=== PATIENT | female | born 1955 | race Caucasian/White ===

== ENCOUNTER → 2016-12-30 | Outpatient (CLI) | payer BC ==
--- NOTE | 2016-12-30 16:29 | CT ---
EXAMINATION TYPE: CT brain wo con DATE OF EXAM: 12/30/2016 4:13 PM COMPARISON: NONE HISTORY: 61-year-old female with memory loss, worse over the past 6 months. TECHNIQUE: Examination was done in axial plane without intravenous contrast. Coronal and sagittal reconstructions performed. CT DLP: 1147.00 mGycm Automated exposure control for dose reduction was used. FINDINGS: There is no evidence of acute intracranial hemorrhage, acute ischemic changes, mass, mass-effect, or extra-axial fluid collection. There is no effacement of cerebral sulci or basal subarachnoid cister ns. There is no hydrocephalus. There is no midline shift. Mendoza-white matter distinction is preserv ed. Mild bifrontal cortical atrophy. Paranasal sinuses and mastoid air cells well pneumatized. Orbits and globes are intact. 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 IMPRESSION: No acute intracranial abnormality seen. Mild bifrontal cortical atrophy.
== END | disposition home or self-care (01) ==
LOC: RADCTMAIN 15:57
PROVIDERS: ATTEND Psychiatry & Neurology Neurology
DX: G31.9 Degenerative disease of nervous system, unspecified (principal); R51 Headache; R41.3 Other amnesia
CPT/HCPCS: 70450

== ENCOUNTER 2018-06-29 08:47 | Day surgery (SDC) | payer BC ==
[2018-06-26 15:37] VITALS: BMI 54.8
[~2018-06-29 08:47] MED LIST: LACTATED RINGERS 1,000 ML IV SCH; LIDOCAINE 1% 20 ML VIAL (10MG/ML) FOR IV START INTRADERMA PRN; MIDAZOLAM 2 MG/2 ML VIAL IV PRN
[2018-06-29 09:34] VITALS: RESP 18; TEMP 98.2
[2018-06-29] MEDS ORDERED: PROPOFOL 10 MG/ML 20 ML VIAL IV ONE (10:01)
--- NOTE | 2018-06-29 10:21 | P.PCN ---
Date of Procedure: 06/29/18 Procedure(s) Performed: BRIEF HISTORY: Patient is a 62-year-old pleasant white female, scheduled for an elective colonoscopy as a part of evaluation of chronic diarrhea for the last 6 months duration. She is having bowel movements anywhere from 4-5 a day which are loose to watery in consistency. He stopped taking meloxicam and the diarrhea has improved a week ago. She also has prior history of colon polyps. PROCEDURE PERFORMED: Colonoscopy with random biopsies. PREOPERATIVE DIAGNOSIS: Chronic diarrhea and history of colon polyps. IV sedation per Anesthesia. PROCEDURE: After informed consent was obtained, the patient, was brought into the endoscopy unit. IV sedation was administered by Anesthesia under continuous monitoring. Digital rectal examination was normal. Initially the Olympus CF- 160 flexible video colonoscope was then inserted in the rectum, gradually advanced into the cecum without any difficulty. Careful examination was performed as the scope was gradually being withdrawn. Ileocecal valve and the appendiceal orifice were visualized and appeared normal. Prep was fair. Thorough irrigation was performed using irrigation system.. Mucosa of the cecum , ascending colon, transverse colon, descending colon, sigmoid colon, and rectum appeared normal. Random biopsies were done from ascending and descending colon to rule out microscopic/collagenous colitis. Retroflexion was performed in the rectum and no lesions were seen. The patient tolerated the procedure well. IMPRESSION: Normal-appearing colon from rectum to cecum with no evidence of colitis or colorectal neoplasia. RECOMMENDATIONS: Findings of this examination were discussed with the patient is a family. She was advised to follow with the biopsy results.. She can have a repeat surveillance colonoscopy in 5 years from now because of the prior history of colon polyps
[2018-06-29 10:26] VITALS: PULSE 66
[2018-06-29 10:38] VITALS: BP 140/84
== END 2018-06-29 10:53 | disposition home or self-care (01) ==
LOC: ORWHC2ENDO 08:47
PROVIDERS: ATTEND Internal Medicine Gastroenterology
DX: K52.9 Noninfective gastroenteritis and colitis, unspecified (principal); I10 Essential (primary) hypertension; E78.5 Hyperlipidemia, unspecified; E07.9 Disorder of thyroid, unspecified; J45.909 Unspecified asthma, uncomplicated; M79.7 Fibromyalgia; M32.9 Systemic lupus erythematosus, unspecified; G62.9 Polyneuropathy, unspecified; Z79.82 Long term (current) use of aspirin; Z86.010 Personal history of colon polyps; Z88.8 Allergy status to other drugs, medicaments and biological substances; Z95.2 Presence of prosthetic heart valve; Z87.442 Personal history of urinary calculi; Z87.440 Personal history of urinary (tract) infections; Z79.52 Long term (current) use of systemic steroids; Z79.899 Other long term (current) drug therapy
CPT/HCPCS: 88305; 45380; J2704

== ENCOUNTER 2018-07-11 18:56 | Emergency (ER) | payer BC ==
[2018-07-11 20:05] VITALS: BP 160/77; PULSE 80; RESP 17; TEMP 98.5
--- NOTE | 2018-07-11 20:36 | XR ---
EXAMINATION TYPE: XR foot complete LT DATE OF EXAM: 07/11/2018 COMPARISON: NONE HISTORY: Left foot pain TECHNIQUE: 3 views FINDINGS: There is spurring at the tarsometatarsal joints. There is thickening of the proximal phalan x of the little toe related to old healed fracture. There is old ununited fracture of the distal phal anx of the fourth toe. There is a plantar calcaneal spur. There are small Achilles calcaneal spur. Th ere is calcification posterior to the ankle joint in the soft tissues at measures 2 cm. This could re late to synovial chondromatosis. There is spurring of the anterior ankle joint. IMPRESSION: Osteoarthritic changes. Old fractures. No acute bony abnormality.
[2018-07-11 20:45] LABS: Appearance,Urine Clear (Clear); Bacteria,Urine Moderate /hpf; Bilirubin,Urine Negative (Negative); Blood,Urine Negative (Negative); Color,Urine Yellow; Glucose,Urine (UA) Negative (Negative); Ketones,Urine Negative (Negative); Leukocyte Esterase,Urine Negative (Negative); Mucus,Urine Many /hpf; Nitrite,Urine Positive (Negative); PH, Urine 5.5 (5.0-8.0); Protein,Urine 1+ (Negative); RBC,Urine 3 /hpf (0-5); Specific Gravity,Urine 1.024 (1.001-1.035); Urobilinogen,Urine <2.0 mg/dL (<2.0); WBC,Urine 9 /hpf (0-5)
--- NOTE | 2018-07-11 21:27 | ED ---
General Adult HPI - General Chief complaint: Extremity Injury, Lower Stated complaint: lt foot injury Time Seen by Provider: 07/11/18 20:43 Source: patient, RN notes reviewed Mode of arrival: wheelchair Limitations: no limitations, physical limitation - History of Present Illness Initial comments: 62-year-old female presents to the emergency department for a chief complaint of left foot pain. Patient states she woke up yesterday and when she stood up she had pain in the left foot. Patient denies pain in the left ankle. Patient denies any injuries that she is aware of but states she is on her feet quite often. Patient denies any swelling or redness in the calf. Patient denies any history of blood clots. Patient denies any fevers or chills at home. Patient denies any spreading redness or streaking redness in the foot. Patient has no other complaints at this time including shortness of breath, chest pain, abdominal pain, nausea or vomiting, headache, or visual changes. - Related Data Home Medications Medication Instructions Recorded Confirmed Aspirin 81 mg PO HS 09/04/14 07/11/18 Citalopram Hydrobromide [CeleXA] 40 mg PO DAILY 09/04/14 07/11/18 Furosemide [Lasix] 40 mg PO DAILY 09/04/14 07/11/18 Gabapentin [Neurontin] 600 mg PO TID 09/04/14 07/11/18 Hydroxychloroquine Sulfate 200 mg PO BID 09/04/14 07/11/18 [Plaquenil] Levothyroxine Sodium [Synthroid] 112 mcg PO DAILY 09/04/14 07/11/18 Lovastatin [Mevacor] 40 mg PO HS 09/04/14 07/11/18 Meloxicam [Mobic] 7.5 mg PO BID 09/04/14 07/11/18 clonazePAM [KlonoPIN] 1 mg PO HS 09/04/14 07/11/18 Metoprolol Tartrate 25 mg PO BID 04/27/15 07/11/18 Biotin 5 mg PO DAILY 08/05/15 07/11/18 Vitamin B Complex 1 cap PO DAILY 08/05/15 07/11/18 Loratadine 10 mg PO DAILY 06/26/18 07/11/18 Acetaminophen [Tylenol Arthritis] 1,300 mg PO BID 07/11/18 07/11/18 Vitamin D3/Biotin 2000iu/1000mcg 1 tab PO DAILY 07/11/18 07/11/18 buPROPion HCL [Wellbutrin SR] 150 mg PO BID 07/11/18 07/11/18 predniSONE See Taper PO DAILY 07/11/18 07/11/18 Previous Rx's Medication Instructions Recorded Cephalexin [Keflex] 500 mg PO Q8H 10 Days cap 07/11/18 Allergies Allergy/AdvReac Type Severity Reaction Status Date / Time benzoyl peroxide Allergy Rash/Hives Verified 07/11/18 20:28 adhesive tape Allergy Rash/Hives Uncoded 07/11/18 20:28 Review of Systems ROS Statement: Those systems with pertinent positive or pertinent negative responses have been documented in the HPI. ROS Other: All systems not noted in ROS Statement are negative. Past Medical History Past Medical History: Asthma, Fibromyalgia, Hyperlipidemia, Hypertension, Osteoarthritis (OA), Thyroid Disorder Additional Past Medical History / Comment(s): osteoporosis, neuropathy lower legs and feet, lupus, hx kidney stones, migraines, heart murmer, palpitations, diarrhea, current UTI- has not seen PCP yet, History of Any Multi-Drug Resistant Organisms: None Reported Past Surgical History: Appendectomy, Cardiac Valve Replacement, Heart Catheterization, Hernia Repair, Joint Replacement, Orthopedic Surgery, Tonsillectomy, Tubal Ligation Additional Past Surgical History / Comment(s): LETY, LIAM KNEE REPLACEMENTS, AORTIC VALVE REPLACEMENT 02/2015, liam knee arthroscopy, left hip repair for stress fx, surgery for rt radial rx and rt ulna fx, Past Anesthesia/Blood Transfusion Reactions: Motion Sickness Past Psychological History: Depression Smoking Status: Former smoker Past Alcohol Use History: Occasional Past Drug Use History: None Reported - Past Family History Mother Family Medical History: No Reported History General Exam Limitations: physical limitation General appearance: alert, in no apparent distress Head exam: Present: atraumatic, normocephalic, normal inspection Eye exam: Present: normal appearance. Absent: scleral icterus, conjunctival injection ENT exam: Present: normal exam, mucous membranes moist Neck exam: Present: normal inspection, full ROM. Absent: tenderness, meningismus, lymphadenopathy Respiratory exam: Present: normal lung sounds bilaterally. Absent: respiratory distress, wheezes, rales, rhonchi, stridor Cardiovascular Exam: Present: regular rate, normal rhythm, normal heart sounds. Absent: systolic murmur, diastolic murmur, rubs, gallop, clicks Extremities exam: Present: full ROM (Full range of motion of the digits in the left foot. Full range motion of the left ankle and left knee), tenderness ( Mild tenderness to the dorsal aspect of the left midfoot. No tenderness to the medial or lateral malleolus. No tenderness in the ankle or knee.), normal capillary refill (Capillary refill less than 2 seconds and pedal pulse 2+ in the left lower extremity), joint swelling (Patient does have mild nonpitting edema noted of the left ankle and foot), other (Sensation intact in the left foot. No erythema or increased warmth noted. No evidence of a spreading redness or cellulitic infection. No streaking redness or drainage noted.). Absent: calf tenderness (No tenderness in the calf. No erythema, edema, increased warmth noted in the left calf. Negative Homans sign.) Neurological exam: Present: alert, oriented X3, CN II-XII intact Psychiatric exam: Present: normal affect, normal mood Skin exam: Present: warm, dry, intact, normal color. Absent: rash Course Vital Signs 07/11/18 20:00 Temperature 98.5 F Pulse Rate 80 Respiratory 17 Rate Blood Pressure 160/77 O2 Sat by Pulse 96 Oximetry Medical Decision Making - Medical Decision Making 62-year-old female presents to the emergency department for a chief complaint of left foot pain 2 days. Patient woke up with the pain yesterday. Patient states the dorsal aspect of the foot hurts and is more painful when she bears weight. Patient states it is an aching pain. On exam patient has full range of motion of the digits in the left foot and full range motion of the left ankle. No erythema or increased warmth noted or any evidence of infection. Neurovascular intact. Patient does have some dorsal midfoot tenderness. No tenderness in the ankle. Patient does have mild swelling noted to the foot and ankle. 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 X-ray of the left foot shows osteoarthritic changes. Patient aware that there is a calcification posterior to the ankle joint in the soft tissue measures 2 cm which could relate to synovial chondromatosis. Old fractures noted in the fourth and fifth toes. No acute bony abnormality. Patient is likely experiencing arthritic pain and overuse of the left foot. She was given an Darron wrap. She will follow-up with orthopedics for this and number was written on discharge paperwork. Patient wanted a urine test as she had a specialist test her urine and call and states she has a urinary tract infection and to follow-up with primary care. Patient denies any symptoms but states she would like to be tested for urinary tract infection. No chills at home or pain or burning with urination. Urinalysis has positive nitrites with moderate bacteria noted. Urine culture sent. Patient will be treated with Keflex. She will follow up with primary care in 1-2 days. She will return to the emergency Department if she has any worsening symptoms. - Lab Data Lab Results 07/11/18 Range/Units 20:05 Urine Color Yellow Urine Appearance Clear (Clear) Urine pH 5.5 (5.0-8.0) Ur Specific [place] 1.024 (1.001-1.035) Urine Protein 1+ H (Negative) Urine Glucose (UA) Negative (Negative) Urine Ketones Negative (Negative) Urine Blood Negative (Negative) Urine Nitrite Positive H (Negative) Urine Bilirubin Negative (Negative) Urine Urobilinogen <2.0 (<2.0) mg/dL Ur Leukocyte Esterase Negative (Negative) Urine RBC 3 (0-5) /hpf Urine WBC 9 H (0-5) /hpf Urine Bacteria Moderate H (None) /hpf Urine Mucus Many H (None) /hpf Disposition Clinical Impression: Foot pain, left Disposition: HOME SELF-CARE Condition: Good Instructions: Urinary Tract Infection in Women (ED), Foot Sprain (ED) Additional Instructions: Please rest ice and elevate the left foot. Please follow-up with orthopedics in one to 2 days. Please return to the emergency department if you have any worsening symptoms. Prescriptions: Cephalexin [Keflex] 500 mg PO Q8H 10 Days cap Is patient prescribed a controlled substance at d/c from ED?: No Referrals: Zachariah Carrillo MD [Primary Care Provider] - 1-2 days Devon Hill MD [STAFF PHYSICIAN] - 1-2 days Time of Disposition: 21:25
== END 2018-07-11 22:07 | disposition home or self-care (01) ==
LOC: EC 18:56
DX: M79.672 Pain in left foot (principal); J45.909 Unspecified asthma, uncomplicated; M79.7 Fibromyalgia; E78.5 Hyperlipidemia, unspecified; I10 Essential (primary) hypertension; M19.90 Unspecified osteoarthritis, unspecified site; E07.9 Disorder of thyroid, unspecified; M81.0 Age-related osteoporosis without current pathological fracture; G62.9 Polyneuropathy, unspecified; F32.9 Major depressive disorder, single episode, unspecified; Z87.891 Personal history of nicotine dependence; Z96.653 Presence of artificial knee joint, bilateral; Z90.49 Acquired absence of other specified parts of digestive tract; Z95.2 Presence of prosthetic heart valve; Z98.890 Other specified postprocedural states; Z79.1 Long term (current) use of non-steroidal anti-inflammatories (NSAID); Z79.52 Long term (current) use of systemic steroids; Z79.82 Long term (current) use of aspirin; Z79.899 Other long term (current) drug therapy; Z88.8 Allergy status to other drugs, medicaments and biological substances; Z91.048 Other nonmedicinal substance allergy status
CPT/HCPCS: 81001; 87086; 99283

== ENCOUNTER → 2018-10-10 | Outpatient (CLI) | payer BC ==
[2018-10-10 15:55] LABS: Albumin 4.4 g/dL (3.80-4.90); Albumin/Globulin Ratio 2.32 (1.20-2.10); Anion Gap 8.1 mmol/L (4.00-12.00); Calcium 9.8 mg/dL (8.7-10.3); Carbon Dioxide 30.9 mmol/L (21.6-31.8); Globulin 1.9 g/dL (2.1-3.7); LDL Cholesterol,Calculated 126.2 mg/dL (0.0-131.0); Potassium 4.2 mmol/L (3.5-5.5); Total Bilirubin 1.2 mg/dL (0.2-1.2); Total Protein 6.3 g/dL (6.2-8.2); VLDL Calculation 26.8 mg/dL (5.00-40.00)
== END ==
LOC: LABWHC1 10:47
PROVIDERS: ATTEND Internal Medicine Interventional Cardiology
DX: E78.2 Mixed hyperlipidemia (principal)
CPT/HCPCS: 36415; 80053; 80061

== ENCOUNTER → 2020-11-04 | Outpatient (CLI) | payer MEDICARE, OTHER ==
--- NOTE | 2020-11-04 14:39 | CT ---
EXAMINATION TYPE: CT ankle LT wo con DATE OF EXAM: 11/04/2020 COMPARISON: None HISTORY: Left foot and ankle pain for 20+ years. CT DLP: 445.4 mGycm Automated exposure control for dose reduction was used. CONTRAST: None Axial images were obtained at 2 mm thick sections. Reconstructed images in the coronal and sagittal p lilibeth are reviewed on the computer. FINDINGS: Subchondral cyst formation within the talar dome is evident. The ankle mortise appears intact. Soft t issues appear normal. No acute fractures evident. There is some extensive calcification posterior to the talus and superior to the calcaneus may be a large secondary ossification center. There is mild n arrowing of the talotibial junction. Osteoarthritic degenerative changes likely present. Some minimal soft tissue edema may be posterior lateral to the fibula. Additional findings within the foot are discussed on CT foot report same date. IMPRESSION: OSTEOARTHRITIC DEGENERATIVE CHANGE OF THE ANKLE.
--- NOTE | 2020-11-04 15:29 | CT ---
EXAMINATION TYPE: CT foot LT wo con DATE OF EXAM: 11/04/2020 COMPARISON: HISTORY: Left foot and ankle pain for 20+ years. CT DLP: 445.4 mGycm Automated exposure control for dose reduction was used. TECHNIQUE: Axial images 2 mm thick sections. Reconstructed images in the coronal and sagittal planes. FINDINGS: There is flattening of the plantar arch. Degenerative joint changes are at the tarsometatarsal region . Hammertoes appear to be present. Degenerative changes are at the ankle. Please also see CT ankle report of same date. There are advanc ed degenerative changes at the talocalcaneal junction. Subchondral cyst formation is along the talar dome as well as within the cuboid and the calcaneus. Subchondral cyst formation is also within the re gion of the first and second metatarsal cuneiform junction some fifth metatarsal cuboid subchondral c yst formation is evident. No acute fractures are identified. Old fracture of the mid diaphyseal fourth metacarpal is present. IMPRESSION: 1. NO ACUTE FRACTURES. 2. DEGENERATIVE JOINT CHANGES INCLUDING THE TALOCALCANEAL JUNCTIONS, AND TARSOMETATARSAL JUNCTIONS.
== END | disposition home or self-care (01) ==
LOC: RADCTMAIN 11:14
PROVIDERS: ATTEND Orthopaedic Surgery Foot and Ankle Surgery
DX: M25.572 Pain in left ankle and joints of left foot (principal); M19.072 Primary osteoarthritis, left ankle and foot

== ENCOUNTER → 2020-12-07 | Outpatient (CLI) | payer MEDICARE, OTHER | END | disposition home or self-care (01) | LOC: LABWHC1 14:38 | PROVIDERS: ATTEND Orthopaedic Surgery Foot and Ankle Surgery | DX: M19.072 Primary osteoarthritis, left ankle and foot (principal) | CPT/HCPCS: 36415; 82306 ==

== ENCOUNTER → 2020-12-18 | Outpatient (CLI) | payer MEDICARE, OTHER ==
[2020-12-18 14:09] LABS: African American GFR (CKD) 77.2 (60.0-200.0); Albumin 4.7 g/dL (3.80-4.90); Albumin/Globulin Ratio 2.47 (1.60-3.17); Anion Gap 10.1 mmol/L (4.00-12.00); BUN/Creat Ratio 21.11 Ratio (12.00-20.00); Calcium 9.6 mg/dL (8.7-10.3); Carbon Dioxide 26.9 mmol/L (21.6-31.8); Chol/HDL Ratio 3.77; Globulin 1.9 g/dL (1.6-3.3); LDL Cholesterol,Calculated 137.4 mg/dL (0.0-131.0); Non-African American GFR(CKD) 66.6 (60.0-200.0); Potassium 4.3 mmol/L (3.5-5.5); Total Bilirubin 1.4 mg/dL (0.2-1.2); Total Protein 6.6 g/dL (6.2-8.2); VLDL Calculation 34.6 mg/dL (5.00-40.00)
== END | disposition home or self-care (01) ==
LOC: LABWHC1 07:54
PROVIDERS: ATTEND Internal Medicine Interventional Cardiology
DX: E78.2 Mixed hyperlipidemia (principal)
CPT/HCPCS: 36415; 80053; 80061

== ENCOUNTER → 2021-06-08 | Outpatient (CLI) | payer MEDICARE, OTHER ==
[2021-06-08 18:53] LABS: Basophils # (A) 0.03 X 10*3/uL (0.00-0.10); Basophils % (A) 0.3 %; Eosinophils # (A) 0.02 X 10*3/uL (0.04-0.35); Eosinophils % (A) 0.2 %; HCT 41.4 % (37.2-46.3); HGB 13.5 g/dL (12.0-15.0); Lymphocytes # (A) 0.93 X 10*3/uL (0.90-5.00); Lymphocytes % (A) 9.5 %; MCHC 32.6 g/dL (32.0-37.0); MCV 88.8 fL (80.0-97.0); Mean Platelet Volume 10.1 fL (9.5-12.2); Monocytes # (A) 0.91 X 10*3/uL (0.20-1.00); Monocytes % (A) 9.3 %; Neutrophils # (A) 7.89 X 10*3/uL (1.80-7.70); Neutrophils % (A) 80.5 %; Platelet Count 247 X 10*3/uL (140-440); RBC 4.66 X 10*6/uL (4.10-5.20); RDW 13.7 % (11.5-14.5)
[2021-06-08 21:01] LABS: Erythrocyte Sedimentation Rate 46 mm/Hr (0-30)
[2021-06-09 11:18] LABS: HLA B27 POSITIVE
== END | disposition home or self-care (01) ==
LOC: LABWHC1 13:08
PROVIDERS: ATTEND Internal Medicine
DX: M54.5 Low back pain (principal); G89.4 Chronic pain syndrome; R53.82 Chronic fatigue, unspecified
CPT/HCPCS: 36415; 85025; 85652; 86038; 86039; 86431; 86812

== ENCOUNTER → 2021-07-09 | Outpatient (CLI) | payer MEDICARE, OTHER ==
--- NOTE | 2021-07-09 09:18 | MR ---
EXAMINATION TYPE: MR lumbar spine wo con DATE OF EXAM: 07/09/2021 COMPARISON: NONE HISTORY: Lumbar radiculopathy, back pain TECHNIQUE: Multiplanar, multisequence imaging of the lumbar spine is performed without IV contrast. FINDINGS: Sagittal images of the lumbar spine show vertebral body heights and alignment to appear sat isfactory. The intervertebral discs demonstrate normal heights and hydration multilevel disc desiccat ion and disc space heights are fairly well-maintained except for mild disc space narrowing L2-L3 leve l. The conus medullaris is normal in position and signal ending at L1 level. The bone marrow signal intensity is within normal limits in the lumbar spine. Mild to moderate anterior spurring with heter ogeneous pleuritic type II endplate changes and anterior T11-T12 level. Posterior disc herniation not ed at this level on sagittal image 8 significantly effacing anterior thecal sac. Axial images begin at T12-L1 level which appears within normal limits. Axial images at L1-L2 level shows mild broad-based disc bulge mildly effacing anterior thecal sac. Pa tent bilateral neural foramina. Axial images at L2-L3 levels with [id number] broad disc bulge mildly effacing anterior thecal s ac with mild facet degenerative changes bilaterally. Patent bilateral neural foramina. Axial images at L3-L4 level appear within normal limits. Axial images at L4-L5 level show mild facet arthropathy bilaterally. Spinal canal is preserved. Paten t Bilateral neural foramina. Axial images at L5-S1 level shows moderate facet arthropathy bilaterally. Spinal canal preserved. Pat ent bilateral neural foramina. No suspicious retroperitoneal finding is present. IMPRESSION: [id number] multilevel degenerative changes in the lumbar spine as detailed above. M ost prominent findings noted partially imaged at T11-T12 level.
== END | disposition home or self-care (01) ==
LOC: RADMRIMAIN 08:09
PROVIDERS: ATTEND Internal Medicine Rheumatology
DX: M51.16 Intervertebral disc disorders with radiculopathy, lumbar region (principal)
CPT/HCPCS: 72148

== ENCOUNTER → 2021-08-12 | Outpatient (CLI) | payer MEDICARE, OTHER ==
[2021-08-12 23:12] LABS: Basophils # (A) 0.04 X 10*3/uL (0.00-0.10); Basophils % (A) 0.5 %; Eosinophils # (A) 0.18 X 10*3/uL (0.04-0.35); Eosinophils % (A) 2.1 %; HCT 41.2 % (37.2-46.3); HGB 13.4 g/dL (12.0-15.0); INR 1.02 (0.90-1.11); Lymphocytes % (A) 16.3 %; MCH 28.9 pg (27.0-32.0); MCHC 32.5 g/dL (32.0-37.0); MCV 88.8 fL (80.0-97.0); Mean Platelet Volume 10.1 fL (9.5-12.2); Monocytes # (A) 0.69 X 10*3/uL (0.20-1.00); Neutrophils # (A) 6.24 X 10*3/uL (1.80-7.70); Neutrophils % (A) 72.6 %; Platelet Count 281 X 10*3/uL (140-440); Prothrombin Time 11.1 sec (9.9-11.9); RBC 4.64 X 10*6/uL (4.10-5.20); RDW 13.2 % (11.5-14.5); WBC 8.59 X 10*3/uL (4.50-10.00)
[2021-08-13 04:40] LABS: African American GFR (CKD) 76.7 (60.0-200.0); Anion Gap 14.2 mmol/L (4.00-12.00); BUN/Creat Ratio 15.44 Ratio (12.00-20.00); Blood Urea Nitrogen 13.9 mg/dL (9.0-27.0); Calcium 9.3 mg/dL (8.7-10.3); Carbon Dioxide 26.8 mmol/L (21.6-31.8); Non-African American GFR(CKD) 66.2 (60.0-200.0); Potassium 3.9 mmol/L (3.5-5.5)
== END | disposition home or self-care (01) ==
LOC: LABWHC1 12:00
PROVIDERS: ATTEND Internal Medicine
DX: Z01.812 Encounter for preprocedural laboratory examination (principal)
CPT/HCPCS: 36415; 80048; 85025; 85610

== ENCOUNTER → 2022-04-06 | Outpatient (CLI) | payer MEDICARE, OTHER ==
[2022-04-06 14:48] LABS: HCT 42.7 % (37.2-46.3); HGB 13.5 g/dL (12.0-15.0); MCH 28.8 pg (27.0-32.0); MCHC 31.6 g/dL (32.0-37.0); MCV 91.2 fL (80.0-97.0); Mean Platelet Volume 9.4 fL (9.5-12.2); NRBC Per 100 WBC 0 /100 WBCS (0.0-0.0); Platelet Count 316 X 10*3/uL (140-440); RBC 4.68 X 10*6/uL (4.10-5.20); RDW 14.6 % (11.5-14.5); WBC 8.54 X 10*3/uL (4.50-10.00)
[2022-04-06 14:59] LABS: ALT 14 U/L (8-44); AST 22 U/L (13-35); African American GFR (CKD) 84.2 (60.0-200.0); Albumin 4.2 g/dL (3.8-4.9); Albumin/Globulin Ratio 1.28 (1.60-3.17); Alkaline Phosphatase 77 U/L (41-126); BUN/Creat Ratio 30.92 Ratio (12.00-20.00); Blood Urea Nitrogen 25.6 mg/dL (9.0-27.0); Calcium 9.7 mg/dL (8.7-10.3); Carbon Dioxide 26.9 mmol/L (20.0-27.5); Chloride 102 mmol/L (96-109); Chol/HDL Ratio 6.04 Ratio; Globulin 3.3 g/dL (1.6-3.3); Glucose 97 mg/dL (70-110); LDL Cholesterol,Calculated 151.1 mg/dL (0.0-131.0); Non-African American GFR(CKD) 72.7 (60.0-200.0); Potassium 4.9 mmol/L (3.5-5.5); Sodium 139 mmol/L (135-145); Total Protein 7.4 g/dL (6.2-8.2)
== END | disposition home or self-care (01) ==
LOC: LABWHC1 09:56
PROVIDERS: ATTEND Internal Medicine
DX: I10 Essential (primary) hypertension (principal); R63.4 Abnormal weight loss; E78.5 Hyperlipidemia, unspecified
CPT/HCPCS: 36415; 80053; 80061; 84439; 84443; 84481; 85027

== ENCOUNTER → 2023-05-22 | Outpatient (CLI) | payer MEDICARE, OTHER ==
[2023-05-22 16:27] LABS: Chol/HDL Ratio 3.23 Ratio; LDL Cholesterol,Calculated 99.7 mg/dL (0.0-131.0); T4, Free (Free Thyroxine) 1.86 ng/dL (0.80-1.80)
[2023-05-22 17:08] LABS: ALT 21 U/L (8-44); AST 20 U/L (13-35); Albumin 4.3 d/dL (3.8-4.9); Albumin/Globulin Ratio 1.79 Ratio (1.60-3.17); Alkaline Phosphatase 87 U/L (41-126); Bilirubin, Conjugated 0.47 mg/dL (0.20-0.40); Bilirubin,Unconjugated 1.63 mg/dL (0.20-1.00); Blood Urea Nitrogen 25.1 mg/dL (9.0-27.0); Carbon Dioxide 24.7 mmol/L (21.6-31.8); Chloride 104 mmol/L (96-109); Globulin 2.4 d/dL (1.6-3.3); Glucose 90 mg/dL (70-110); Potassium 4.1 mmol/L (3.5-5.5); Sodium 140 mmol/L (135-145); Total Bilirubin 2.1 mg/dL (0.3-1.2); Total Protein 6.7 d/dL (6.2-8.2)
== END | disposition home or self-care (01) ==
LOC: LABWHC1 12:12
PROVIDERS: ATTEND Internal Medicine
DX: I10 Essential (primary) hypertension (principal); E78.5 Hyperlipidemia, unspecified
CPT/HCPCS: 36415; 80051; 80061; 80076; 82565; 82947; 84439; 84443; 84481; 84520

== ENCOUNTER → 2023-10-05 | Outpatient (CLI) | payer MEDICARE, OTHER ==
[2023-10-05 16:51] LABS: NT-Pro-B-Type Natriuretic Pept 8570 pg/mL
[2023-10-06 04:52] LABS: Blood Urea Nitrogen 28.6 mg/dL (9.0-27.0); Carbon Dioxide 20.8 mmol/L (21.6-31.8); Chloride 103 mmol/L (96-109); Potassium 3.9 mmol/L (3.5-5.5); Sodium 142 mmol/L (135-145)
== END | disposition home or self-care (01) ==
LOC: LABWHC1 14:06
PROVIDERS: ATTEND Internal Medicine
DX: I11.0 Hypertensive heart disease with heart failure (principal); I50.22 Chronic systolic (congestive) heart failure; J44.9 Chronic obstructive pulmonary disease, unspecified; E03.9 Hypothyroidism, unspecified
CPT/HCPCS: 36415; 80051; 82565; 83880; 84520